=== PATIENT | male | born 2000 | race African-American/Black ===

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

== ENCOUNTER 2024-02-13 15:05 | Emergency (ER) | payer OTHER, MEDICAID ==
[~2024-02-13] VITALS: Ht 177.8 cm; Wt 200.0 kg
[~2024-02-13 15:05] MED LIST: TETANUS, DIPHTHERIA, PERTUSSIS VAC/PF 0.5ML (>10YR OLD) IM ONE
[2024-02-13 15:08] VITALS: O2SAT 96
[2024-02-13] MEDS: CEFAZOLIN 1000MG PREMIX 50 ML IV NR (15:30)
[2024-02-13] MEDS: MORPHINE SULFATE 4 MG/ML INJ (FOR IV/IM USE) IV NR (15:30)
[2024-02-13 15:56] LABS: CHLORIDE 108 mEq/L (98-107); POTASSIUM 4.4 mEq/L (3.5-5.1); SODIUM 142 mEq/L (136-145)
[2024-02-13 15:57] LABS: CALCIUM 9.4 mg/dL (8.7-10.4); CARBON DIOXIDE 29 mEq/L (21-32)
[2024-02-13 16:02] LABS: BASOPHILS % 0.2 % (0.0-2.0); CREATININE 1.1 mg/dL (0.6-1.3); EOSINOPHILS % 0.4 % (0.0-5.0); GLUCOSE 97 mg/dL (70-105); HEMATOCRIT. 49.4 % (42.0-52.0); HEMOGLOBIN. 16.1 g/dL (14.0-18.0); LYMPHOCYTES % 20.9 % (20.0-50.0); MEAN CORPUSCULAR HEMOGLOBIN 31.1 pg (28.0-32.0); MEAN CORPUSCULAR HGB CONC 32.6 g/dL (31.0-37.0); MEAN CORPUSCULAR VOLUME 95.3 fL (80.0-94.0); MEAN PLATELET VOLUME 8.9 fl (7.4-10.4); MONOCYTES % 9.8 % (2.0-8.0); NEUTROPHILS % 68.7 % (40.0-76.0); PLATELET 266 x1000/uL (130-400); RED BLOOD CELL COUNT 5.18 mill/uL (4.7-6.1); RED CELL DISTRIBUTION WIDTH 14.7 % (11.6-14.6); UREA NITROGEN BLOOD 8 mg/dL (9-23); WHITE BLOOD COUNT 9.9 x1000/uL (4.5-11.0)
[2024-02-13 16:03] LABS: PROTHROMBIN TIME 10.8 sec (9.6-11.0)
[2024-02-13] MEDS: TETANUS, DIPHTHERIA, PERTUSSIS VAC/PF 0.5ML (>10YR OLD) IM ONE (18:05)
[2024-02-13 18:30] VITALS: BP 124/74; PULSE 89; RESP 21; TEMP 36.89184; O2SAT 98
[2024-02-13] MEDS ORDERED: IOHEXOL-350 100 ML BOTTLE ONE (23:22)
== END 2024-02-13 18:41 | disposition home or self-care (01) ==
LOC: ER 15:05
DX: S71.111A Laceration without foreign body, right thigh, initial encounter (principal); W18.30XA Fall on same level, unspecified, initial encounter; Y93.89 Activity, other specified; Y92.89 Other specified places as the place of occurrence of the external cause; Y99.8 Other external cause status
CPT/HCPCS: 80048; 85025; 85610; 86850; 86900; 86901; 36415; 73501; 72170; 75635; 12002; 96365; 96375; 99291; Q9967; J0690; J2270; Z7610; 73552

== ENCOUNTER 2024-07-16 20:16 | Emergency (ER) | payer MEDICAID, OTHER ==
[~2024-07-16] VITALS: Ht 180.3 cm; Wt 91.0 kg
[2024-07-16 20:26] VITALS: O2SAT 95
[2024-07-16 20:49] VITALS: BP 140/91; PULSE 90; RESP 18; TEMP 36.6; O2SAT 99
[2024-07-16] MEDS: ACETAMINOPHEN 325MG TABLET PO ONE (21:23)
[2024-07-16] MEDS: TETANUS, DIPHTHERIA, PERTUSSIS VAC/PF 0.5ML (>10YR OLD) IM ONE (21:27)
[2024-07-16] MEDS ORDERED: BACITRACIN ZINC OINT UDPKT TOP ONE (22:00)
[2024-07-16] MEDS ORDERED: LIDOCAINE HCL/PF 1% 10 MG/ML 5ML VIAL INFIL ONE (22:00)
== END 2024-07-16 22:26 | disposition home or self-care (01) ==
LOC: ER 20:16
DX: S61.211A Laceration without foreign body of left index finger without damage to nail, initial encounter (principal); W45.8XXA Other foreign body or object entering through skin, initial encounter; Y93.89 Activity, other specified; Y92.89 Other specified places as the place of occurrence of the external cause; Y99.8 Other external cause status
CPT/HCPCS: 73130; 90715; 12001; 90471; 99283; Z7610 ×5; 96372

== ENCOUNTER 2024-07-30 23:49 | Emergency (ER) | payer MEDICAID, OTHER ==
[~2024-07-30] VITALS: Ht 180.3 cm; Wt 90.0 kg
[2024-07-31 00:09] VITALS: O2SAT 99
[2024-07-31] MEDS ORDERED: MUPI15CR11 TP (01:15)
[2024-07-31 01:30] VITALS: BP 114/68; PULSE 76; RESP 12; TEMP 36.9; O2SAT 100
== END 2024-07-31 01:33 | disposition home or self-care (01) ==
LOC: ER 23:49
DX: S61.218D Laceration without foreign body of other finger without damage to nail, subsequent encounter (principal); X58.XXXD Exposure to other specified factors, subsequent encounter
CPT/HCPCS: 99283